=== PATIENT | female | born 1970 | race Caucasian/White ===

== ENCOUNTER → 2020-09-23 | Outpatient (CLI) | payer OTHER ==
--- NOTE | 2020-09-23 13:47 | RAD ---
2 views the right knee without comparison for neck and low back pain, right knee pain, no known injury, disability determination. FINDINGS: There is no fracture or acute osseous abnormality. Joints and soft tissues are grossly unremarkable. No significant degenerative changes. IMPRESSION: 1. No acute osseous abnormality. Electronically signed by: Bahman Sommers MD (09/23/2020 1:43 PM) [email or web address]
--- NOTE | 2020-09-23 13:47 | RAD ---
2 views the cervical spine without comparison for chronic neck pain, disability determination, no known injury. FINDINGS: There is straightening of the normal cervical lordosis, with grade 1 anterolisthesis of C4 on C5, and narrowing of the C4-5, C5-6, and C6-7 intervertebral disc spaces. Posterior osteophytes are seen at C5-6 and C6-7. Prevertebral soft tissues are grossly unremarkable. Uncovertebral arthrosis is evident. IMPRESSION: 1. No fracture or acute osseous or alignment abnormality of the cervical spine. 2. Multilevel degenerative changes as described. Electronically signed by: Bahman Sommers MD (09/23/2020 1:42 PM) [email or web address]
--- NOTE | 2020-09-23 13:47 | RAD ---
2 views lumbar spine without comparison for chronic back pain, disability determination, no known injury. FINDINGS: There is straightening of normal lumbar lordosis. There is mild narrowing at L5-S1, as well as the L2-3. Facet arthrosis is seen at L4-5 and L5-S1. No alignment abnormality is evident. No fracture or acute osseous abnormality is seen. IMPRESSION: 1. Multilevel degenerative changes as described. No acute osseous abnormality. Electronically signed by: Bahman Sommers MD (09/23/2020 1:42 PM) [email or web address]
== END ==
LOC: RAD 09:35
PROVIDERS: ATTEND Anesthesiology Pain Medicine
DX: M47.812 Spondylosis without myelopathy or radiculopathy, cervical region (principal); M47.816 Spondylosis without myelopathy or radiculopathy, lumbar region; M25.78 Osteophyte, vertebrae; M43.12 Spondylolisthesis, cervical region; M48.07 Spinal stenosis, lumbosacral region; G89.29 Other chronic pain
CPT/HCPCS: 72040; 72100; 73560